=== PATIENT | male | born 1950 | race Caucasian/White ===

== ENCOUNTER 2019-07-06 06:28 | Observation (INO) ==
--- NOTE | 2019-07-06 09:30 | Acute Care Surgery H&P ---
Date of Encounter: 07/06/19 Time of Encounter: 09:24 Assessment and Plan (1) Biliary colic Current Visit: Yes Status: Acute The assessment and plan as outlined above was discussed with the patient and/or family members who expressed understanding and agreement. All questions were answered. I explained to the patient that I personally reviewed the CT scan images and report and based upon his history I do think it likely he has biliary colic due to the cystic duct stone. I think would be appropriate to proceed with a laparoscopic cholecystectomy with interrupted cholangiogram. Risks and benefits have been discussed with the patient and family member and they agree to the above plan. (2) Abnormal CT of the abdomen Current Visit: Yes Status: Acute The assessment and plan as outlined above was discussed with the patient and/or family members who expressed understanding and agreement. All questions were answered. See above History of Present Illness Chief complaint: Mid abdominal pain, radiating to back. HPI: Mr. Retana is a 69 year old male with a past medical history significant for hypertension, chronic kidney disease stage III, GERD, hyperlipidemia who states that prior to midnight he had the onset of abdominal pain that was mid abdominal in location and radiated to the neck bilaterally in a bandlike fashion. He says that the pain was sharp and lasted for several hours. He denied any nausea or vomiting and normally has a bowel movement once a day without any diarrhea or constipation however on his presentation to [facility] he did have some diarrhea in small amounts of stool. He denied any rectal bleeding. He was treated for pain and had a CT scan study that was abnormal and subsequently was transferred to the [facility] for further evaluation. Past Med Surg Social Fam HX - Past Medical History Medical history: diabetes, hypertension, kidney stones Additional medical history: CKD 3 Psychiatric history: no psych history - Past Surgical History Surgical History: vasectomy, other (Heart catheterization 2012 (no stents), colonoscopy 2012) - Social History Smoking Status: Never smoker Smokeless Tobacco Status: No Alcohol use: none Drug use: none Medications and Allergies Lisinopril-HCTZ 20-12.5 [Prinzide 20-12.5] 2 tab PO DAILY 08/31/16 [History] Simvastatin [Zocor] 40 mg PO HS 08/31/16 [History] Tamsulosin [Flomax] 0.4 mg PO DAILY 08/31/16 [History] amLODIPine [Norvasc] 25 mg PO DAILY 08/31/16 [History] raNITIdine HCl [Zantac] 150 mg PO BID 08/31/16 [History] Aspirin [Lo-Dose Aspirin EC] 81 mg PO DAILY 07/06/19 [History] Cholecalciferol (D-3) [Vitamin D] 2 tab PO DAILY 07/06/19 [History] Allergy/AdvReac Type Severity Reaction Status Date / Time No Known Allergies Allergy Verified 05/13/18 12:05 Review of Systems All systems PM: reviewed and no additional remarkable complaints except as stated All systems PM: The remainder of the systems were reviewed and are negative General Surgery Exam - Eyes PERRL, normal ocular movement - Respiratory normal expansion, normal respiratory effort, clear to auscultation - Cardiovascular Cardiovascular exam: Present: RRR, no murmurs/rubs/gallops - Abdomen Abdomen general surgery: Present: bowel sounds present, soft, non tender - Integumentary Integumentary general surgery: Present: warm and dry - Neurologic Present: CN 2-12 grossly intact - Musculoskeletal Present: other (No clubbing, cyanosis, or edema) - Psychiatric Psychiatric general surgery: Present: A&Ox3, oriented to person, oriented to place, oriented to time Results - Labs All other labs normal. - Imaging CT scan - abdomen: report reviewed, image reviewed (Personally reviewed the CT scan images and report which shows evidence of gallstones and a stone at the level of the cystic duct. There is no bile duct stone visualized)
[2019-07-06] MEDS ORDERED: *HR* Rocuronium Bromide 50 MG/5 ML VIAL ONE ×3 (16:36→19:15)
[2019-07-06] MEDS ORDERED: Lidocaine -MPF 2% 2 ML VIAL ONE ×3 (16:36→19:15)
[2019-07-06] MEDS ORDERED: Dexamethasone 4 MG/ML VIAL ONE ×2 (16:36→19:15)
[2019-07-06] MEDS ORDERED: Lidocaine -MPF 4% 5 ML AMPUL ONE (16:36)
[2019-07-06] MEDS ORDERED: *HR* Propofol 200 MG/20 ML VIAL IVP ONE ×3 (16:36→19:14)
[2019-07-06] MEDS ORDERED: Ondansetron 4 MG/2 ML VIAL ONE ×2 (16:36→19:15)
[2019-07-06] MEDS ORDERED: *HR* FentaNYL (PF) 100 MCG/2 ML VIAL ONE ×2 (16:37→19:14)
[2019-07-06] MEDS ORDERED: *HR* Midazolam HCl 2 MG/2 ML VIAL ONE (16:37)
[2019-07-06] MEDS ORDERED: Lidocaine HCL 4 ML Topical Solution (Laryng-O-Jet Kit Sterile Pak) TP ONE ×2 (16:42→19:17)
[2019-07-06] MEDS ORDERED: Morphine Sulfate Oral CONC 10 MG/0.5 ML ORAL.SYG SL PRN (17:26)
[2019-07-06] MEDS ORDERED: Ondansetron 4 MG/2 ML VIAL IVP PRN (17:26)
[2019-07-06] MEDS ORDERED: 0.9 % Sodium Chloride 1,000 ML IV SCH (17:30)
[2019-07-06] MEDS ORDERED: *HR* PHENYLEPHRINE 1,000 MCG/10 ML SYRINGE IVP ONE (17:46)
[2019-07-06] MEDS ORDERED: *HR* Heparin 5,000 UNIT/ML VIAL SQ SCH (18:00)
[2019-07-06] MEDS ORDERED: Pregabalin 50 MG CAPSULE PO ONE (19:03)
[2019-07-06] MEDS ORDERED: traMADol 50 MG TABLET PO ONE (19:03)
--- NOTE | 2019-07-06 19:07 | Anesthesia Evaluation PreOp ---
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 Other Medical History: Diabetes Type II, GERD Anesthesia History: No Prior Anesthetic Complications Alcohol Use: none Drug use: none Medications and Allergies Lisinopril-HCTZ 20-12.5 [Prinzide 20-12.5] 2 tab PO DAILY 08/31/16 [History] Simvastatin [Zocor] 40 mg PO HS 08/31/16 [History] Tamsulosin [Flomax] 0.4 mg PO DAILY 08/31/16 [History] amLODIPine [Norvasc] 25 mg PO DAILY 08/31/16 [History] raNITIdine HCl [Zantac] 150 mg PO BID 08/31/16 [History] Aspirin [Lo-Dose Aspirin EC] 81 mg PO DAILY 07/06/19 [History] Cholecalciferol (D-3) [Vitamin D] 2 tab PO DAILY 07/06/19 [History] Allergy/AdvReac Type Severity Reaction Status Date / Time No Known Allergies Allergy Verified 05/13/18 12:05 - Meds/Allergy Pre-op Review Medications Reviewed: Yes Allergies Reviewed: Yes Beta Blockers on Current Med List: No Anesthesia Results - Labs Laboratory Tests 07/06/19 07/06/19 02:10 02:10 Hgb 13.9 Hct 41.0 Plt Count 146 Sodium 138 Potassium 3.7 BUN 27 H Creatinine 1.70 H - Imaging EKG: report reviewed (SB) Additional studies: ECHO 2017 EF 60% Anesthesia Exam Vital Signs/O2 Sat/Glucose, Most Current Pulse BP 07/06/19 15:37 67 132/61 Height: 5'5 Weight: 168 lbs NPO (# of Hours): MN Pain Scale: 0 - HEENT Pupil (Motor): Pupils equal, EOMI Mallampati: II Teeth: Normal Oral Opening: Greater than 3 - 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
[2019-07-06] MEDS ORDERED: Bupivacaine/EPI 1:200k 0.5%PF 30 ML VIAL ONE (21:07)
[2019-07-06] MEDS ORDERED: *HR* HYDROmorphone (PF) 1 MG/ML SYRINGE IVP PRN (21:12)
[2019-07-06] MEDS ORDERED: *HR* Promethazine 25 MG/ML VIAL IVP PRN (21:12)
[2019-07-06] MEDS ORDERED: *HR* OxyCODONE Immed Rel 5 MG TABLET PO PRN (21:12)
[2019-07-06] MEDS ORDERED: Ondansetron 4 MG/2 ML VIAL IVP ONE (21:12)
[2019-07-06] MEDS ORDERED: Acetaminophen IV 1,000 MG/100 ML INFUS..BTL ONE ×2 (21:17→21:39)
[2019-07-06] MEDS ORDERED: Isovue-300 50 ML VIAL ONE (21:24)
[2019-07-06] MEDS ORDERED: CefOXitin 2,000 MG VIAL ONE (21:38)
[2019-07-06] MEDS ORDERED: Neostigmine Methylsulfate 3 MG/3 ML SYRINGE ONE (22:00)
--- NOTE | 2019-07-06 22:08 | Operative Note ---
Date of procedure: 07/06/19 Pre-op diagnosis: Biliary colic, abnormal CT scan abdomen Post-op diagnosis: other (Acute cholecystitis) Procedure: Laparoscopic cholecystectomy with intraoperative cholangiogram Anesthesia: BASILIOA Surgeon: Rikki Cartagena Was there an project construction assistant manager present: Yes Operational Assistant: Elnior Khan Estimated blood loss (cc): 10 Specimen: gallbladder and contents Condition: stable Disposition: PACU Procedure in Detail: Date of surgery: 07/06/19 After properly identifying the patient, the patient was brought to the operating room and placed in the supine position. After proper IV sedation was achieved followed by general endotracheal intubation, the patient's abdomen was prepped and draped in a normal sterile fashion. A timeout was performed noting the patient's name and type of procedure to be performed. An 11 blade scalpel was used to make an incision just above the umbilicus onto the rectus fascia. Once the rectus fascia was incised and the abdomen entered a 12 mm port was placed to the incision and the abdomen was insufflated with carbon dioxide. A laparoscopic camera was placed through the port which showed no injury to the intra-abdominal organs upon entry. A subxiphoid 5 mm port and a right subcostal margin 5 mm port were then placed under direct camera visualization. The patient was placed in a reverse Trendelenburg position and the gallbladder was identified and retracted superiorly. There is thickening of the gallbladder a and there were some omental adhesions to the gallbladder which was consistent with acute cholecystitis and which were dissected with Bovie cauterization blunt dissection. This allowed for visualization of the cystic duct. The peritoneal covering overlying the cystic duct and cystic artery were then dissected free with a [place] dissector. The cystic duct was then further isolated and a clip was placed distally along the cystic duct near the infundibulum. The nontraumatic grasper was exchanged for a Ramires grasper and a cholangiogram catheter was placed in the side-port of the grasper. A laparoscopic scissors were used to make an incision just proximal to the clip and catheter was placed in the opening and secured in place with a laparoscopic clip. Laparoscopic intraoperative cholangiogram demonstrated flow into the common bile duct and small bowel and retrograde filling of hepatic radicles with no evidence of a filling defect. The cholangiogram catheter was then removed and the cystic duct was formally clipped and incised. The cystic artery was likewise identified, clipped with left scopic clips, and incised laparoscopic scissors. Bovie cauterization was used to dissect the gallbladder from the gallbladder fossa while maintain hemostasis. Once the gallbladder was detached it was removed from the abdomen via an Endobag. Reinspection of the right upper quadrant demonstrated maintenance of hemostasis and right upper quadrant was copiously irrigated with normal saline solution until the effluent was clear. All ports are then removed from the abdomen after the abdomen was desufflated. The rectus fascia for the subumbilical incision was reapproximated with a [id number] 0 Vicryl suture. The subcutaneous tissue was reapproximated wit h a 3-0 Vicryl suture and the epidermal and dermal layers for the remaining incisions were closed with 4-0 Monocryl sutures. Needle, sponge, and instrument counts were correct 2, and the incisions were covered with Steri-Strips and Band-Aids. The patient was aroused from IV sedation, extubated in the operating room without complication, and transported to the recovery room in stable condition.
[2019-07-06] MEDS ORDERED: Ringers Solution, Lactated 1,000 ML ONE ×2 (22:31→23:26)
[2019-07-07] MEDS ORDERED: Morphine Sulfate Oral CONC 10 MG/0.5 ML ORAL.SYG SL PRN (00:05)
[2019-07-07] MEDS ORDERED: cefOXitin 1,000 MG in Water for inj. (sterile) 10 ML IVP SCH (00:05)
[2019-07-07] MEDS ORDERED: *HR* OxyCODONE/APAP 5/325 TABLET PO PRN (00:05)
[2019-07-07] MEDS ORDERED: 0.9 % Sodium Chloride 1,000 ML IV SCH (00:05)
[2019-07-07] MEDS ORDERED: Ondansetron 4 MG/2 ML VIAL IVP PRN (00:05)
--- NOTE | 2019-07-07 01:20 | Anesthesia Evaluation Post Op ---
Date of Encounter: 07/06/19 Time of Encounter: 23:10 - Vital Signs Vital Signs: Vital Signs/O2 Sat/Glucose, Most Current Temp Pulse Resp BP Pulse Ox 07/07/19 00:13 98.3 F 50 16 101/60 93 07/06/19 23:50 98.4 F 61 18 107/64 93 07/06/19 23:45 100/56 07/06/19 23:40 58 18 105/71 95 07/06/19 23:36 95/51 07/06/19 23:30 58 18 96/54 93 07/06/19 23:20 98.6 F 63 20 100/51 93 07/06/19 23:10 53 20 97/50 94 07/06/19 23:05 97/55 07/06/19 23:00 56 20 96/62 94 07/06/19 22:55 96/55 07/06/19 22:50 97.9 F 52 20 95/53 96 07/06/19 22:40 58 20 103/57 95 07/06/19 22:30 60 20 106/64 94 07/06/19 22:20 97.2 F L 72 20 121/63 94 - Lungs Lungs: Clear Ascult./Percussion - Airway Airway: Non-obstructed - Cardiovascular Regular Rate - Mental Status Mental Status: Alert & Oriented, Answers Appropriately - Pain Pain Scale: 1 - Nausea Vomiting Nausea Vomiting: Not Present - Hydration Hydration: Ice chips - Discharge PostOp Status: Transfer Patient to floor
[2019-07-07] MEDS: *HR* Heparin 5,000 UNIT/ML VIAL SQ SCH ×2 (05:54→19:55)
[2019-07-07] MEDS: cefOXitin 1,000 MG in Water for inj. (sterile) 10 ML IVP SCH ×3 (05:55→23:50)
[2019-07-07 06:54] LABS: Hematocrit 37.6 % (37.5-50.1); Hemoglobin 12.5 g/dL (12.9-16.9); Immature Granulocytes % 0.4 % (0-4); Lymphocytes # 0.5 K/mcL (0.6-4.6); Lymphocytes % 4.9 %; Mean Corpuscular HGB Conc 33.2 g/dL (31.6-35.5); Mean Corpuscular Hemoglobin 30.6 pg (28.0-33.3); Mean Corpuscular Volume 91.9 fL (83.0-100.0); Mean Platelet Volume 9.8 fL (9.4-12.4); Monocytes # 0.2 K/mcL (0.0-1.3); Monocytes % 1.9 %; Neutrophils # 9.4 K/mcL (1.6-8.9); Platelet Count 118 K/mcL (140-400); Red Blood Count 4.09 M/mcL (4.19-5.50); Red Cell Distribution Width 13.2 % (11.5-14.5); Segmented Neutrophils % 92.8 %; White Blood Count 10.1 K/mcL (4.3-11.1)
[2019-07-07 07:59] LABS: Calcium 8.9 mg/dL (8.6-10.3); Potassium 4.9 mEq/L (3.5-5.1)
--- NOTE | 2019-07-07 08:33 | Discharge Summary ---
<Anai Bailey - Last Filed: 07/08/19 08:09> Orders not resulted at time of discharge: Pending orders 07/06/19 21:43 Surgical Pathology [PTH] Routine Date of Encounter: 07/08/19 Time of Encounter: 08:09 - Discharge Diagnosis (1) Biliary colic Priority: Primary Status: Resolved (2) CKD (chronic kidney disease), stage III Priority: Secondary Status: Chronic (3) Abnormal CT of the abdomen Priority: Secondary Status: Resolved (4) Acute urinary retention Priority: Secondary Status: Acute Comments: acute on chronic General Surgery Exam Initial Vital Signs Temp Pulse Resp BP Pulse Ox 97.9 F 62 14 117/59 98 07/06/19 09:28 07/06/19 09:28 07/06/19 09:28 07/06/19 09:28 07/06/19 09:28 - General physical appearance well nourished, no distress, no pain - Neck trachea midline - Respiratory normal expansion, normal respiratory effort - Cardiovascular Cardiovascular exam: Present: RRR - Abdomen Abdomen general surgery: Present: bowel sounds present, soft, tender (expected postoperative) - Integumentary Integumentary general surgery: Present: warm and dry - Neurologic Present: normal sensation - Musculoskeletal Present: normal posture - Psychiatric Psychiatric general surgery: Present: A&Ox3 - Hospital Course Hospital course: Mr. Retana is a 69 year old male who presented on 07/06/2019 for right upper quadrant abdominal pain. He was noted to have biliary colic and underwent a laparoscopic cholecystectomy with intraoperative cholangiogram. His postoperative findings were consistent with acute cholecystitis. He is ambulating without difficulty and tolerating a diet without nausea or vomiting. His postoperative course has been complicated by acute on chronic urinary retention. He was given an extra dose of 0.4 mg Flomax this a.m. A Post avoid residual scan noted 500 mL. Straight Was performed and 550 mL of clear yellow urine returned. Patient was originally set to discharge on 07/07/2019 but he refused a Soriano catheter and prefer to remain in the hospital for observation. He was kept overnight. He is now urinating and his creatinine is at his baseline. We will begin discharge planning to home with a follow-up in the office as previously recommended. - Time Spent with Patient Total time spent providing and/or coordinating discharge services: - Discharge Medications Prescriptions: New Docusate Sodium [Colace] 100 mg PO BID PRN #30 capsule PRN Reason: Contstipation OxyCODONE Immed Rel [Roxicodone 5 MG] 5 mg PO Q6HR PRN 3 Days #15 tablet PRN Reason: Severe Pain Ondansetron ODT [Zofran ODT] 4 mg SL Q4HR PRN #15 tab.rapdis PRN Reason: Postsurgical nausea Continued Tamsulosin [Flomax] 0.4 mg PO DAILY Amlodipine Besylate 2.5 mg PO DAILY Ranitidine HCl [Acid Seam Steamer] 150 mg PO BID Simvastatin [Zocor] 40 mg PO HS Lisinopril-HCTZ 20-12.5 [Prinzide 20-12.5] 2 tab PO DAILY Aspirin [Lo-Dose Aspirin EC] 81 mg PO DAILY Cholecalciferol (D-3) [Vitamin D] 2,000 unit PO DAILY Home Medications: Lisinopril-HCTZ 20-12.5 [Prinzide 20-12.5] 2 tab PO DAILY 08/31/16 [History] Simvastatin [Zocor] 40 mg PO HS 08/31/16 [History] Amlodipine Besylate 2.5 mg PO DAILY 07/06/19 [History] Aspirin [Lo-Dose Aspirin EC] 81 mg PO DAILY 07/06/19 [History] Cholecalciferol (D-3) [Vitamin D] 2,000 unit PO DAILY 07/06/19 [History] Ranitidine HCl [Acid Seam Steamer] 150 mg PO BID 07/06/19 [History] Tamsulosin [Flomax] 0.4 mg PO DAILY 07/06/19 [History] Docusate Sodium [Colace] 100 mg PO BID PRN #30 capsule 07/07/19 [Rx] Ondansetron ODT [Zofran ODT] 4 mg SL Q4HR PRN #15 tab.rapdis 07/07/19 [Rx] OxyCODONE Immed Rel [Roxicodone 5 MG] 5 mg PO Q6HR PRN 3 Days #15 tablet 07/07/19 [Rx] Allergies/Adverse Reactions: Allergy/AdvReac Type Severity Reaction Status Date / Time No Known Allergies Allergy Verified 05/13/18 12:05 Date of admission: 07/06/19 08:45 Primary care physician: Marii Phipps MD Discharging clinician: Alexey Meza (Shruthi Bailey, [employer]) Anticipated date of discharge: 07/08/19 Labs on day of discharge: Labs from last 24 hours 07/07/19 07/07/19 07/06/19 06:44 06:44 20:36 WBC 10.1 RBC 4.09 L Hgb 12.5 L Hct 37.6 MCV 91.9 MCH 30.6 MCHC 33.2 RDW 13.2 Plt Count 118 L MPV 9.8 Immature Gran % 0.4 Seg Neutrophils % 92.8 Lymphocytes % 4.9 Monocytes % 1.9 Eosinophils % 0.0 Basophils % 0.0 Neutrophils # 9.4 H Lymphocytes # 0.5 L Monocytes # 0.2 Eosinophils # 0.0 Basophils # 0.0 Sodium 137 Potassium 4.9 Chloride 105 Carbon Dioxide 22 L BUN 23 Creatinine 1.63 H Est GFR ( Amer) 51 L Est GFR (Non-Af Amer) 42 L BUN/Creatinine Ratio 14 Glucose 192 H POC Glucose 88 Calculated Osmolality 293 Calcium 8.9 07/06/19 07/06/19 07/06/19 16:02 11:39 09:25 WBC RBC Hgb Hct MCV MCH MCHC RDW Plt Count MPV Immature Gran % Seg Neutrophils % Lymphocytes % Monocytes % Eosinophils % Basophils % Neutrophils # Lymphocytes # Monocytes # Eosinophils # Basophils # Sodium Potassium Chloride Carbon Dioxide BUN Creatinine Est GFR ( Amer) Est GFR (Non-Af Amer) BUN/Creatinine Ratio Glucose POC Glucose 99 89 98 Calculated Osmolality Calcium - Impressions ITS Impressions Cholangiogram,Operative 07/06/19 00:00 IMPRESSION: Normal intraoperative cholangiogram. D/ / Anshu Franks MD / Anshu Franks MD Interpreting Provider: Anshu Franks MD - Patient Status Disposition: Home, Self-Care Condition: Good Functional capacity at discharge: independent ambulation Overall status at discharge: patient is progressing back to baseline - Discharge Instructions Instructions: Oxycodone/Acetaminophen (By mouth), Laxative, Stool Softeners (By mouth), Ondansetron (By mouth), Urinary Retention in Men (GEN), Laparoscopic Cholecystectomy (DC) Follow Up With: [facility] [Other] (request for appointment made with [facility]) Marii Phipps MD [Primary Care Provider] - Anai Bailey CNP [Advanced Practice Nurse] - 07/18/19 1:15 pm Additional Instructions: General Surgical Discharge Instructions 1. No pushing, pulling, or lifting greater than 15 lbs for 4 weeks. 2. You may remove your dressings and shower beginning today, but no tub baths, soaking, or swimming for 2 weeks. 3. No driving for one weeks unless otherwise specified and then you may resume driving when you are off narcotics and are safe to react in a car. 4. Take 1000 mg of acetaminophen every 6 hours and apply ice to the abdomen 20 minutes every hour that your week. If this does not relieve discomfort, you may take the as needed oxycodone. Eat a small snack with pain medication as this will help reduce the risk of nausea. Take narcotics as directed. Do not take more narcotics then directed and do not share your narcotics with any other person. Do not drink alcohol while on narcotics. You can take the Zofran/ondansetron if needed for nausea or with a dose of narcotics to prevent nausea. 5. Take stool softeners (Colace) or a water based laxative (Miralax) while taking narcotics. You may hold for loose stools. 6. Report any fevers greater than 100.5F, increase abdominal discomfort, drainage that looks like pus, increased redness or pain at the surgical site, or any vomiting. 7. Report any pain in the calves, shortness of breath, or rapid heartbeat. 8. Follow-up in the office as directed. 9. If you were prescribed antibiotics, do not stop them without talking to your provider. - Diet and Activity Activity: increase activity as tolerated Diet: advance to your usual diet <Alexey Benson - Last Filed: 07/08/19 10:00> Orders not resulted at time of discharge: Pending orders 07/06/19 21:43 Surgical Pathology [PTH] Routine Date of Encounter: 07/08/19 General Surgery Exam Initial Vital Signs Temp Pulse Resp BP Pulse Ox 97.9 F 62 14 117/59 98 07/06/19 09:28 07/06/19 09:28 07/06/19 09:28 07/06/19 09:28 07/06/19 09:28 - Hospital Course Hospital course: Mr. Retana is a 69 year old male - Time Spent with Patient Total time spent providing and/or coordinating discharge services: Date of admission: 07/06/19 08:45 Primary care physician: Marii Phipps MD Labs on day of discharge: Labs from last 24 hours 07/08/19 07/08/19 07/07/19 05:52 05:52 19:36 WBC 10.1 RBC 3.90 L Hgb 12.3 L Hct 36.8 L MCV 94.4 MCH 31.5 MCHC 33.4 RDW 13.2 Plt Count 125 L MPV 10.2 Immature Gran % 0.3 Seg Neutrophils % 80.2 Lymphocytes % 13.8 Monocytes % 5.2 Eosinophils % 0.4 Basophils % 0.1 Neutrophils # 8.1 Lymphocytes # 1.4 Monocytes # 0.5 Eosinophils # 0.0 Basophils # 0.0 Sodium 140 Potassium 4.2 Chloride 106 Carbon Dioxide 23 BUN 32 H Creatinine 1.62 H Est GFR ( Amer) 52 L Est GFR (Non-Af Amer) 43 L BUN/Creatinine Ratio 20 Glucose 126 H POC Glucose 203 H Calculated Osmolality 298 Calcium 9.0 07/07/19 07/07/19 07/07/19 16:56 12:11 07:53 WBC RBC Hgb Hct MCV MCH MCHC RDW Plt Count MPV Immature Gran % Seg Neutrophils % Lymphocytes % Monocytes % Eosinophils % Basophils % Neutrophils # Lymphocytes # Monocytes # Eosinophils # Basophils # Sodium Potassium Chloride Carbon Dioxide BUN Creatinine Est GFR ( Amer) Est GFR (Non-Af Amer) BUN/Creatinine Ratio Glucose POC Glucose 225 H 160 H 190 H Calculated Osmolality Calcium - Impressions ITS Impressions Cholangiogram,Operative 07/06/19 00:00 IMPRESSION: Normal intraoperative cholangiogram. D/ / Anshu Franks MD / Anshu Franks MD Interpreting Provider: Anshu Franks MD - Attending Attestation I examined this patient and my medical decision-making was reviewed with the SECY. I agree with the documented findings, disposition and treatment plan as described to the extent set forth below. POD#2 Lap jordyn for acute cholecystitis. Post-op urinary retention resolved. Pt is tolerating PO intake, voiding now as usual and reports that pain is well controlled. Condition is satisfactory for DC home. See DC plan for post-op instuctions and follow-up appt.
[2019-07-07] MEDS: Pantoprazole 40 MG VIAL IVP SCH (08:35)
[2019-07-07] MEDS ORDERED: Pantoprazole 40 MG VIAL IVP SCH (09:00)
--- NOTE | 2019-07-07 12:07 | Acute Care Surgery Event Note ---
Date of Encounter: 07/07/19 Time of Encounter: 11:00 Patient with acute on chronic urinary retention. He was given his normal dose of Flomax this a.m. Waited approximately 250 mL. Post avoid residual bladder scan is with 500 ML's. Ordered straight, 550 ML's returned. Patient to be re- bladder scan @1700. (PVR) if he has more than 200 mL per straight, place Soriano catheter and discharge with Soriano catheter.
[2019-07-07] MEDS: *HR* OxyCODONE Immed Rel 5 MG TABLET PO PRN (19:55)
[2019-07-08] MEDS: *HR* Heparin 5,000 UNIT/ML VIAL SQ SCH (05:32)
[2019-07-08 06:26] LABS: Basophils % 0.1 %; Eosinophils % 0.4 %; Hematocrit 36.8 % (37.5-50.1); Hemoglobin 12.3 g/dL (12.9-16.9); Immature Granulocytes % 0.3 % (0-4); Lymphocytes # 1.4 K/mcL (0.6-4.6); Lymphocytes % 13.8 %; Mean Corpuscular HGB Conc 33.4 g/dL (31.6-35.5); Mean Corpuscular Hemoglobin 31.5 pg (28.0-33.3); Mean Corpuscular Volume 94.4 fL (83.0-100.0); Mean Platelet Volume 10.2 fL (9.4-12.4); Monocytes # 0.5 K/mcL (0.0-1.3); Monocytes % 5.2 %; Neutrophils # 8.1 K/mcL (1.6-8.9); Platelet Count 125 K/mcL (140-400); Red Cell Distribution Width 13.2 % (11.5-14.5); Segmented Neutrophils % 80.2 %; White Blood Count 10.1 K/mcL (4.3-11.1)
[2019-07-08 06:49] LABS: Potassium 4.2 mEq/L (3.5-5.1)
--- NOTE | 2019-07-08 08:14 | AcuteCareSurgery Progress Note ---
<Anai Bailey - Last Filed: 07/08/19 08:15> Date of Encounter: 07/07/19 Time of Encounter: 17:00 (Assessed at 0730 and 1700) - Assessment and Plan (1) Biliary colic Status: Acute Postop day one laparoscopic cholecystectomy. Patient was originally planned for discharge on 07/07/2019 however he was experiencing acute urinary retention. He waited approximately 200 ML's and PVR scan noted greater than 500. A straight Was performed and 550 mL urine returned. He elected to remain in the hospital overnight for monitoring rather than being discharged with a Soriano catheter. Plan: Continue supportive care and discomfort management while awaiting full return of bowel function Continue G.I. and DVT prophylaxis Incentive spirometry 10 times every hour while awake Out of bed to chair TID, do not offer meal trays while in the bed Activity as tolerated Apply ice 20 minutes on 20 minutes off as needed repeat a.m. labs. Discharge planning 07/08/2019 (2) CKD (chronic kidney disease), stage III Status: Chronic At baseline. Closely monitor given acute urinary retention (3) Abnormal CT of the abdomen Status: Resolved (4) Acute urinary retention Status: Acute See above Subjective Patient reports: feels better, pain is less, tolerating liquids well, tolerating a regular diet, no flatus, no bowel movement, afebrile Narrative: Urinary retention at baseline. He has not urinated. Objective Vital Signs - Last 8 Hours Temp Pulse Resp BP Pulse Ox 07/08/19 07:25 97.9 F 74 14 07/08/19 04:34 97.7 F 60 16 108/65 94 Intake and Output 07/07/19 07/08/19 07/08/19 23:59 07:59 15:59 Intake Total 120 / 460 Output Total 655 / 1405 240 / 440 200 / 440 Balance -535 / -945 -240 / -440 -200 / -440 Intake: Oral 120 / 440 Output: Urine 655 / 855 240 / 440 200 / 440 Other: Meal Dinner Percent of Meal Consumed 25% Blood Glucose* 203 - General physical appearance well nourished, no distress - Eyes normal ocular movement - ENT atraumatic, normocephalic - Neck Neck exam: trachea midline - Respiratory normal expansion, normal respiratory effort - Cardiovascular Cardiovascular exam: Present: RRR - Abdomen Abdomen: Present: bowel sounds present, soft, tender (Expected postoperative) Hernia: none - Incision Incision: Present: clean and dry, intact - Integumentary no rash - Neurologic normal coordination, normal sensation - Musculoskeletal normal posture - Psychiatric oriented to time, oriented to person, oriented to place - Labs 07/08/19 05:52 07/08/19 05:52 Diabetes panel 07/08/19 Range/Units 05:52 Sodium 140 (136-145) mEq/L Potassium 4.2 (3.5-5.1) mEq/L Chloride 106 (98-107) mEq/L Carbon Dioxide 23 (23-29) mEq/L BUN 32 H (8-23) mg/dL Creatinine 1.62 H (0.70-1.30) mg/dL Glucose 126 H (70-105) mg/dL Calcium 9.0 (8.6-10.3) mg/dL Calcium panel 07/08/19 Range/Units 05:52 Calcium 9.0 (8.6-10.3) mg/dL Pituitary panel 07/08/19 Range/Units 05:52 Sodium 140 (136-145) mEq/L Potassium 4.2 (3.5-5.1) mEq/L Chloride 106 (98-107) mEq/L Carbon Dioxide 23 (23-29) mEq/L BUN 32 H (8-23) mg/dL Creatinine 1.62 H (0.70-1.30) mg/dL Glucose 126 H (70-105) mg/dL Calcium 9.0 (8.6-10.3) mg/dL Adrenal panel 07/08/19 Range/Units 05:52 Sodium 140 (136-145) mEq/L Potassium 4.2 (3.5-5.1) mEq/L Chloride 106 (98-107) mEq/L Carbon Dioxide 23 (23-29) mEq/L BUN 32 H (8-23) mg/dL Creatinine 1.62 H (0.70-1.30) mg/dL Glucose 126 H (70-105) mg/dL Calcium 9.0 (8.6-10.3) mg/dL Consult Discharge Plan - Plan Instructions: Oxycodone/Acetaminophen (By mouth), Laxative, Stool Softeners (By mouth), Ondansetron (By mouth), Urinary Retention in Men (GEN), Laparoscopic Cholecystectomy (DC) Additional Instructions: General Surgical Discharge Instructions 1. No pushing, pulling, or lifting greater than 15 lbs for 4 weeks. 2. You may remove your dressings and shower beginning today, but no tub baths, soaking, or swimming for 2 weeks. 3. No driving for one weeks unless otherwise specified and then you may resume driving when you are off narcotics and are safe to react in a car. 4. Take 1000 mg of acetaminophen every 6 hours and apply ice to the abdomen 20 minutes every hour that your week. If this does not relieve discomfort, you may take the as needed oxycodone. Eat a small snack with pain medication as this will help reduce the risk of nausea. Take narcotics as directed. Do not take more narcotics then directed and do not share your narcotics with any other person. Do not drink alcohol while on narcotics. You can take the Zofran/ondansetron if needed for nausea or with a dose of narcotics to prevent nausea. 5. Take stool softeners (Colace) or a water based laxative (Miralax) while taking narcotics. You may hold for loose stools. 6. Report any fevers greater than 100.5F, increase abdominal discomfort, drainage that looks like pus, increased redness or pain at the surgical site, or any vomiting. 7. Report any pain in the calves, shortness of breath, or rapid heartbeat. 8. Follow-up in the office as directed. 9. If you were prescribed antibiotics, do not stop them without talking to your provider. Referrals: [facility] [Other] (request for appointment made with [facility]) Marii Phipps MD [Primary Care Provider] - Anai Bailey CNP [Advanced Practice Nurse] - 07/18/19 1:15 pm Prescriptions: Docusate Sodium [Colace] 100 mg PO BID PRN #30 capsule PRN Reason: Contstipation OxyCODONE Immed Rel [Roxicodone 5 MG] 5 mg PO Q6HR PRN 3 Days #15 tablet PRN Reason: Severe Pain Ondansetron ODT [Zofran ODT] 4 mg SL Q4HR PRN #15 tab.rapdis PRN Reason: Postsurgical nausea <Gracia,Kenneth T - Last Filed: 07/11/19 06:53> Date of Encounter: 07/11/19 Objective - Labs 07/08/19 05:52 07/08/19 05:52 - Attending Attestation I have personally performed a face to face evaluation on this patient. I have reviewed and agree with the care plan. History and Exam by me shows: The patient is seen and evaluated on morning rounds with the acute care surgery team. Discharge pending urinary retention treatment plan. Stable from laparoscopic cholecystectomy. Kenneth Fagan MD FACS
[2019-07-08 08:45] VITALS: BP 141/68
[2019-07-08] MEDS: Pantoprazole 40 MG VIAL IVP SCH (09:18)
[2019-07-08] MEDS: *HR* OxyCODONE Immed Rel 5 MG TABLET PO PRN (09:19)
== END 2019-07-08 10:55 | disposition home or self-care (01) ==
LOC: 2ANU → 2NENU 08:49
PROVIDERS: ADMIT Surgery; ATTEND Surgery